=== PATIENT | male | born 1995 | race Asian ===

== ENCOUNTER 2021-09-19 23:27 | Emergency (ER) | payer OTHER ==
[2021-09-19] MEDS ORDERED: ACETAMINOPHEN 1000 MG/100 ML BAG IVPB ONE (23:49)
[2021-09-19] MEDS ORDERED: METOCLOPRAMIDE HCL INJECTION 10 MG/2 ML VIAL IVPB ONE (23:49)
[2021-09-19] MEDS ORDERED: SODIUM CHLORIDE 0.9% 500 ML INFUS.BAG IV ONE (23:49)
[2021-09-19 23:58] VITALS: TEMP 98.2; BMI 39.8
[2021-09-20 02:36] VITALS: BP 140/96; PULSE 94
[2021-09-21 17:10] LABS: SARS-CoV-2 NAA Not Detected (Not Detected)
== END 2021-09-20 02:37 | disposition home or self-care (01) ==
LOC: JER 23:27
PROC: 3E0333Z Introduction of Anti-inflammatory into Peripheral Vein, Percutaneous Approach (ICD-10-PCS; principal; 2021-09-19)
PROC: 3E033GC Introduction of Other Therapeutic Substance into Peripheral Vein, Percutaneous Approach (ICD-10-PCS; 2021-09-19)
DX: R51.9 Headache, unspecified (principal); J09.X2 Influenza due to identified novel influenza A virus with other respiratory manifestations
CPT/HCPCS: 70450-TC; 87804; 99284-25; C9803-CS; U0003; U0005

== ENCOUNTER 2022-10-15 13:12 | Emergency (ER) | payer OTHER ==
[2022-10-15 13:30] VITALS: BP 136/84; PULSE 67; RESP 17; TEMP 98.5; BMI 38.7
== END 2022-10-15 15:25 | disposition home or self-care (01) ==
LOC: JERFT 13:12
DX: M54.41 Lumbago with sciatica, right side (principal); G57.01 Lesion of sciatic nerve, right lower limb
CPT/HCPCS: 99283-25